=== PATIENT | female | born 1935 | race Caucasian/White ===

== ENCOUNTER 2018-09-27 18:54 | Observation (INO) | payer MEDICARE, OTHER ==
[2018-09-27] MEDS ORDERED: ONDANSETRON HCL INJ/PF 4 MG/2 ML SDV IV ONE (19:28)
[2018-09-27] MEDS ORDERED: MORPHINE SULFATE 10 MG/ML INJ IV ONE ×2 (19:28→21:49)
[2018-09-27 19:44] LABS: ABSOLUTE BASOPHILS # (AUTO) 0.1 10^3/uL (0.0-0.2); ABSOLUTE EOSINOPHILS # (AUTO) 0.2 10^3/uL (0.0-0.6); ABSOLUTE LYMPHOCYTES (AUTO) 2.2 10^3/uL (0.5-4.7); ABSOLUTE MONOCYTES (AUTO) 0.6 10^3/uL (0.1-1.4); ABSOLUTE NEUT (AUTO) 2.8 10^3/uL (1.7-8.2); BASOPHILS % (AUTO) 0.9 % (0-2); EOSINOPHILS % (AUTO) 2.8 % (0-6); HEMATOCRIT 38.4 % (36.0-47.0); HEMOGLOBIN 12.9 g/dL (12.0-15.5); MEAN CORPUSCULAR HEMOGLOBIN 29.4 pg (27.0-33.4); MEAN CORPUSCULAR HGB CONC 33.6 g/dL (32.0-36.0); MEAN CORPUSCULAR VOLUME 88 fl (80-97); MONOCYTES % (AUTO) 10.5 % (3-13); PLATELET COUNT 208 10^3/uL (150-450); RED BLOOD COUNT 4.38 10^6/uL (3.72-5.28); RED CELL DISTRIBUTION WIDTH 14.1 % (11.5-14.0); SEGMENTED NEUTROPHILS % (AUTO) 47.8 % (42-78); TOTAL CELLS COUNTED % (AUTO) 100 %; WHITE BLOOD COUNT 5.8 10^3/uL (4.0-10.5)
[2018-09-27 19:53] LABS: ALANINE AMINOTRANSFERASE 19 U/L (9-52); ALBUMIN 4.2 g/dL (3.5-5.0); ALKALINE PHOSPHATASE 54 U/L (38-126); ANION GAP 11 (5-19); ASPARTATE AMINO TRANSFERASE 37 U/L (14-36); BILIRUBIN,DIRECT 0.3 mg/dL (0.0-0.4); BILIRUBIN,TOTAL 0.6 mg/dL (0.2-1.3); BLOOD UREA NITROGEN 20 mg/dL (7-20); CALCIUM 9.3 mg/dL (8.4-10.2); CARBON DIOXIDE 27 mmol/L (22-30); CHLORIDE 105 mmol/L (98-107); CREATINE KINASE 156 U/L (30-135); GLUCOSE 102 mg/dL (75-110); POTASSIUM 4.4 mmol/L (3.6-5.0); SODIUM 142.5 mmol/L (137-145); TOTAL PROTEIN 7.4 g/dL (6.3-8.2)
[2018-09-27 20:05] LABS: CREATINE KINASE MB 2.11 ng/mL (<4.55)
[2018-09-27 20:10] LABS: TROPONIN I < 0.012 ng/mL
--- NOTE | 2018-09-27 20:41 | RADIOLOGY REPORT (SQ) ---
EXAM DESCRIPTION: XR LEFT FOOT 3 OR MORE VIEWS COMPLETED DATE/TME: 09/27/2018 19:27 CLINICAL HISTORY: 83 years, Female, Injury of great toe COMPARISON: None. NUMBER OF VIEWS: TECHNIQUE: LIMITATIONS: None. FINDINGS: There is comminuted fracture of the distal phalanx of the great toe. I see no additional fractures. IMPRESSION: Fracture of the distal phalanx of the great toe. copyright 2010 [employer]- All Rights Reserved
--- NOTE | 2018-09-27 20:45 | RADIOLOGY REPORT (SQ) ---
EXAM DESCRIPTION: XR KNEE 3 VIEWS COMPLETED DATE/TME: 09/27/2018 19:27 CLINICAL HISTORY: 83 years, Female, Injury COMPARISON: None. NUMBER OF VIEWS: Three TECHNIQUE: Frontal, lateral, and sunrise projections of the left knee were obtained LIMITATIONS: None. FINDINGS: Soft tissue swelling is noted about the prepatellar soft tissues. Otherwise, visualized osseous structures appear normal without acute fracture or dislocation. No significant knee joint effusion. There is arterial calcinosis. IMPRESSION: Prepatellar soft tissue swelling without underlying acute osseous anomaly. copyright 2010 [employer]- All Rights Reserved
--- NOTE | 2018-09-27 20:50 | RADIOLOGY REPORT (SQ) ---
XR CHEST 1 VIEW HISTORY: Syncope. COMPARISON: None. FINDINGS: The heart size is normal. No consolidation, pleural effusion, or pneumothorax is seen. Prior fixation of the proximal right humerus. Left axillary clips are seen. IMPRESSION: No evidence of acute cardiopulmonary disease.
--- NOTE | 2018-09-27 20:51 | RADIOLOGY REPORT (SQ) ---
EXAM DESCRIPTION: XR WRIST 3 OR MORE VIEWS BILATERAL COMPLETED DATE/TME: 09/27/2018 19:26 CLINICAL HISTORY: 83 years, Female, injury COMPARISON: None. NUMBER OF VIEWS: TECHNIQUE: LIMITATIONS: None. FINDINGS: There is comminuted fracture of the distal right radius, with dorsal angulation. The fracture involves the articular surface of the radius. There is also fracture involving the right ulnar styloid process. There is also comminuted fracture of the distal left radius, with dorsal angulation. This fracture also involves the articular surface of the radius. I do not see an ulnar fracture on the left side. IMPRESSION: Fractures of the distal right radius and right ulnar styloid process. Fracture of the distal left radius. copyright 2010 [employer]- All Rights Reserved
--- NOTE | 2018-09-27 20:55 | RADIOLOGY REPORT (SQ) ---
CT BRAIN AND CERVICAL SPINE HISTORY: Trauma. COMPARISON: None. TECHNIQUE: CT scan of the brain and cervical spine without IV contrast. This exam was performed according to our departmental dose-optimization program, which includes automated exposure control, adjustment of the mA and/or kV according to patient size and/or use of iterative reconstruction technique. FINDINGS: BRAIN: The ventricles, cisterns, and sulci are unremarkable. No focal white matter lesions are seen. No evidence of acute infarction, intracranial hemorrhage, extra-axial fluid collection, or midline shift. There is near complete opacification of the right maxillary sinus. No depressed skull fracture. CERVICAL SPINE: No acute cervical fracture or prevertebral soft tissue swelling. There is straightening of the normal cervical lordosis, which may be due to cervical collar, muscle spasm, or patient positioning. Multilevel degenerative disc disease along with facet arthropathy is present. No advanced canal stenosis is seen. IMPRESSION: 1. No acute intracranial hemorrhage. 2. No acute fracture or subluxation of the cervical spine.
[2018-09-27] MEDS ORDERED: CEFAZOLIN INJ 1 GM VIAL IV ONE (21:46)
[2018-09-27] MEDS ORDERED: MAG HYDROX/AL HYDROX/SIMETH SUSP 30 ML UDCUP PO PRN (21:56)
[2018-09-27] MEDS ORDERED: MAGNESIUM HYDROXIDE SUSP 30 ML UDCUP PO PRN (21:56)
[2018-09-27] MEDS ORDERED: KETOROLAC TROMETHAMINE INJ/PF 30 MG/1 ML SDV IV PRN (21:56)
[2018-09-27] MEDS ORDERED: HYDRALAZINE HCL INJ/PF 20 MG/1 ML SDV IV PRN (21:56)
[2018-09-27] MEDS ORDERED: IPRATROPIUM/ALBUTEROL 0.5-2.5 MG/3 ML AMPUL NEB PRN (21:56)
[2018-09-27] MEDS ORDERED: ACETAMINOPHEN 325 MG TABLET PO PRN (21:56)
[2018-09-27] MEDS ORDERED: NORMAL SALINE 1000 ML 1,000 ML IV PRN (22:00)
--- NOTE | 2018-09-27 22:04 | ER Document Report ---
ED General - Related Data Home Medications: Beta-violeta, trazodone, Ultram <JOE LANGFORD - Last Filed: 09/27/18 22:18> <CATALINA VILLANUEVA - Last Filed: 09/28/18 01:20> - General Chief Complaint: Fall Stated Complaint: FALL/HEAD INJURY Time Seen by Provider: 09/27/18 19:26 - HPI Notes: Patient is an 83-year-old female who presents to the emergency department for evaluation. She is here in town for a wedding. She states she was at the wedding, got dizzy and had a syncopal episode. She complains of pain in her head, bilateral wrist, left knee, left foot. This was witnessed. She was not unconscious on the ground per family. No seizure activity. She denies any chest pain or shortness of breath preceding the syncopal episode. She is unsure as to when her last tetanus shot was. She has not had any recent medication changes. (JOE LANGFORD) - Related Data Allergies/Adverse Reactions: Penicillins Allergy (Verified 09/27/18 19:16) Past Medical History - General Information source: Patient - Social History Smoking Status: Never Smoker Frequency of alcohol use: None Drug Abuse: None Family History: Reviewed & Not Pertinent Patient has suicidal ideation: No Patient has homicidal ideation: No - Past Medical History Cardiac Medical History: Reports: Other - "Irregular heart rate" for which she takes a beta-violeta Renal/ Medical History: Denies: Hx Peritoneal Dialysis Malignancy Medical History: Reports: Hx Breast Cancer Musculoskeletal Medical History: Reports Hx Arthritis <JOE LANGFORD - Last Filed: 09/27/18 22:18> Review of Systems - Review of Systems Constitutional: No symptoms reported EENT: See HPI Cardiovascular: See HPI Respiratory: No symptoms reported Gastrointestinal: No symptoms reported Genitourinary: No symptoms reported Musculoskeletal: See HPI Skin: See HPI Neurological/Psychological: No symptoms reported <JOE LANGFORD - Last Filed: 09/27/18 22:18> Physical Exam <JOE LANGFORD - Last Filed: 09/27/18 22:18> - Vital signs Vitals: Resp Pulse Ox 17 99 09/27/18 19:08 09/27/18 19:08 - Notes Notes: Patient is an 83-year-old female appears her stated age in no acute distress. Head is normocephalic. She has a large hematoma with a 2 cm laceration over the lateral left eyebrow. Mild gaping, no active bleeding, no foreign body. Nares are patent. Nose nasal bone tenderness, no septal hematoma. Oral mucosa is moist. Pharynx is midline. Neck is supple without thyromegaly or adenopathy. She has no midline tenderness or step-off. No paraspinal musculature tenderness of the C-spine. Heart is regular rate and rhythm, lungs are clear to escalation bilaterally. Abdomen soft, nontender, normal active bowel sounds. Patient is awake and alert, oriented x3. Cranial nerves II through XII are grossly intact without focal neurological deficits. Strength is plus 5 out of 5 bilateral upper and lower extremities. Sensation is intact. Unable to fully evaluate [id number], [id number], rapid alternating movement secondary to musculoskeletal pain. She has obvious deformities to right wrist, left wrist. Radial pulse is 2+ bilaterally. Capillary refill is brisk. She is neurovascularly intact to the entire hand. Full range of motion of the thumb bilaterally, although this does elicit some pain. Examination of the left knee reveals a moderate amount of swelling with ecchymosis. Range of motion is painful but full. No posterior calf tenderness. Examination of the left great toe yields a 3 mm wound, actively bleeding minimally. She has significant tenderness over the distal phalanx of the left great toe. She has ecchymosis on the third toe as well. Sensation is intact. Dorsalis pedis pulses 2+. (JOE LANGFORD) Course - Laboratory Result Diagrams: 09/27/18 19:05 09/27/18 19:05 - Diagnostic Test Radiology reviewed: Reports reviewed - CT head and cervical spine revealed n othing acute. Chest x-ray negative. Bilateral comminuted distal radial fractures. Right ulnar styloid fracture. Comminuted left great toe, distal phalanx fracture. <JOE LANGFORD - Last Filed: 09/27/18 22:18> - Laboratory Result Diagrams: 09/27/18 19:05 09/27/18 19:05 <CATALINA VILLANUEVA - Last Filed: 09/28/18 01:20> - Re-evaluation Re-evalutation: 09/27/18 22:02 Patient presents to the emergency department for evaluation. CT scans of the head and neck, plain films of the chest, bilateral wrists, left knee, left foot were ordered. Laboratory investigations, EKG obtained. Patient was placed on personal care assistant. She was given pain medication. She had some relief in her symptoms. She was found to have bilateral comminuted distal radial fractures, right ulnar styloid fracture, a left great toe fracture. CT scan of the head and neck were unremarkable. EKG failed to reveal anything acute, laboratory respirations are largely unremarkable. Her radial fractures does exhibit some dorsal angulation, but I do not believe that immediate reduction is indicated at this time. She is given further pain medication. She is given antibiotics for her open great toe fracture. She is placed in bilateral sugar tong splints. She is neurovascular intact distally. She is placed in a bulky dressing of her left great toe and in a postop shoe. Neurovascular intact following. Facial laceration is cleansed and closed, please see separate procedure note. I spoke with Dr. Jackson who will happily see the patient in consult. I spoke with Dr. Hilton, he will admit the patient for further care. (JOE LANGFORD) - Vital Signs Vital signs: Temp Pulse Resp BP Pulse Ox 98.8 F 14 182/87 H 98 09/27/18 19:15 09/27/18 19:13 09/27/18 19:13 09/27/18 19:26 - Laboratory Laboratory results interpreted by me: 09/27/18 09/27/18 19:05 19:05 RDW 14.1 H Est GFR (Non-Af Amer) 51 L AST 37 H Creatine Kinase 156 H - EKG Interpretation by Me Additional EKG results interpreted by me: 09/27/18 22:04 Sinus rhythm with a rate of 65 bpm. Normal axis and intervals, no acute ST changes concerning for ischemia or infarction. (JOE LANGFORD) Procedures - Laceration/Wound Repair Left Face Wound length (cm): 2 Wound's Depth, Shape: Superficial, Linear Laceration pre-procedure: Sterile PPE donned, Sterile drapes applied, Shur-Clens applied Anesthetic type: 1% Lidocaine w/epi Volume Anesthetic (mLs): 3 Wound explored: Clean, Foreign body removed Irrigated w/ Saline (mLs): 100 Wound Repaired With: Sutures Suture Size/Type: 6:0, Nylon Number of Sutures: 5 Layer Closure?: Yes Complications: No Adult Head Front/Back picture: 1 - 5 sutures placed to close laceration. <CATALINA VILLANUEVA - Last Filed: 09/28/18 01:20> - Laceration/Wound Repair Left Face Notes: 09/28/18 Patient tolerated procedure well. (CATALINA VILLANUEVA) Discharge - Discharge Admitting Provider: Yobani (Hospitalist) Unit Admitted: Telemetry <JOE LANGFORD - Last Filed: 09/27/18 22:18> <CATALINA VILLANUEVA - Last Filed: 09/28/18 01:20> - Discharge Clinical Impression: Syncope Qualifiers: Encounter type: initial encounter Closed fracture of right distal radius and ulna Qualifiers: Encounter type: initial encounter Qualified Code(s): S52.501A - Unspecified fracture of the lower end of right radius, initial encounter for closed fracture Closed fracture of left distal radius Qualifiers: Encounter type: initial encounter Open fracture of distal phalanx of left great toe Qualifiers: Encounter type: initial encounter Facial laceration Qualifiers: Encounter type: initial encounter Qualified Code(s): S01.81XA - Laceration without foreign body of other part of head, initial encounter Head injury Qualifiers: Encounter type: initial encounter Qualified Code(s): S09.90XA - Unspecified injury of head, initial encounter Condition: Stable Disposition: ADMITTED INPATIENT
[2018-09-27] MEDS ORDERED: LIDOCAINE 1%/EPINEPHRINE INJ 20 ML VIAL INJ ONE (22:20)
--- NOTE | 2018-09-27 22:21 | EKG REPORT ---
SEVERITY:- ABNORMAL ECG - SINUS RHYTHM RIGHT BUNDLE BRANCH BLOCK : Confirmed by: Jonatan Doshi MD 27-Sep-2018 22:20:47
[2018-09-28] MEDS: MORPHINE SULFATE 10 MG/ML INJ IV PRN ×6 (00:31→23:48)
[2018-09-28] MEDS: HEPARIN SOD (PORCINE) 5,000 UNIT/ML 1 ML SYRINGE SUBCUT SCH ×4 (00:40→21:20)
--- NOTE | 2018-09-28 05:21 | PDOC H&P ---
History of Present Illness Admission Date/PCP: 09/27/18 22:43 SHAKIRA ALEX MD Patient complains of: Syncope and fall History of Present Illness: JEFFERY DOBBINS is a 83 year old female with a past medical history of fibromyalgia, paroxysmal atrial fibrillation without anticoagulation and syncope. Patient presents after a syncopal episode upon standing resulting dizziness and a prone fall. She denies loss of consciousness, headache dizziness chest pain or palpitations. She did however strike her left brow with 2 cm laceration requiring suture, falling prone she has sustained fractures of the distal right radius and the right ulnar styloid process and fracture of the distal left radius. Also fracturing left distal phalanx of the great toe. Orthopedic surgery is consulted, she is splinted with brisk capillary refill treated symptomatically with morphine and referred to the hospitalist for admission. Patient denies recent change in medications and is otherwise felt well. She is currently in normal sinus rhythm she has had previous episodes of syncope upon standing last occurring one year ago resulting in a right humeral head fracture. Past Medical History Cardiac Medical History: Reports: Other - "Irregular heart rate" for which she takes a beta-violeta Comment Only: Atrial Fibrillation - "irregular HR" Malignancy Medical History: Reports: Breast Cancer Musculoskeltal Medical History: Reports: Arthritis Past Surgical History Past Surgical History: Reports: Hysterectomy, Orthopedic Surgery Social History Information Source: Patient, Emergency Med Personnel, [facility] Records Lives with: Spouse/Significant other Smoking Status: Never Smoker Frequency of Alcohol Use: None Hx Recreational Drug Use: No Drugs: None Hx Prescription Drug Abuse: No - Advance Directive Resuscitation Status: Full Code Family History Family History: Hypertension Parental Family History Reviewed: Yes Children Family History Reviewed: Yes Sibling(s) Family History Reviewed.: Yes Medication/Allergy Allergies/Adverse Reactions: Penicillins Allergy (Verified 09/27/18 19:16) Review of Systems Constitutional: ABSENT: chills, fever(s), headache(s), weight gain, weight loss Eyes: ABSENT: visual disturbances Ears: ABSENT: hearing changes Cardiovascular: ABSENT: chest pain, dyspnea on exertion, edema, orthropnea, palpitations Respiratory: ABSENT: cough, hemoptysis Gastrointestinal: ABSENT: abdominal pain, constipation, diarrhea, hematemesis, hematochezia, nausea, vomiting Genitourinary: ABSENT: dysuria, hematuria Musculoskeletal: ABSENT: joint swelling Integumentary: ABSENT: rash, wounds Neurological: ABSENT: abnormal gait, abnormal speech, confusion, dizziness, foca l weakness, syncope Psychiatric: ABSENT: anxiety, depression, homidical ideation, suicidal ideation Endocrine: ABSENT: cold intolerance, heat intolerance, polydipsia, polyuria Hematologic/Lymphatic: ABSENT: easy bleeding, easy bruising Physical Exam Vital Signs: Temp Pulse Resp BP Pulse Ox 97.9 F 105 H 16 152/47 H 100 09/28/18 01:45 09/28/18 01:45 09/28/18 01:45 09/28/18 01:45 09/28/18 01:45 Intake & Output 09/26/18 09/27/18 09/28/18 11:59 11:59 11:59 Weight 64.5 kg General appearance: PRESENT: cooperative, mild distress, well-developed, well- nourished. ABSENT: disheveled Head exam: PRESENT: other - 2 cm sutured laceration over the left brow with periorbital ecchymosis. ABSENT: atraumatic Eye exam: PRESENT: conjunctiva pink, EOMI, PERRLA. ABSENT: scleral icterus Ear exam: PRESENT: normal external ear exam Mouth exam: PRESENT: moist, tongue midline Neck exam: ABSENT: carotid bruit, JVD, lymphadenopathy, thyromegaly Respiratory exam: PRESENT: clear to auscultation hossein. ABSENT: rales, rhonchi, wheezes Cardiovascular exam: PRESENT: RRR. ABSENT: diastolic murmur, rubs, systolic murmur Pulses: PRESENT: normal dorsalis pedis pul Vascular exam: PRESENT: normal capillary refill GI/Abdominal exam: PRESENT: normal bowel sounds, soft. ABSENT: distended, guarding, mass, organolmegaly, rebound, tenderness Rectal exam: PRESENT: deferred Extremities exam: PRESENT: other - Bilateral upper extremity splinting with brisk capillary refill. Left great toe splinted Neurological exam: PRESENT: alert, awake, oriented to person, oriented to place, oriented to time, oriented to situation, CN II-XII grossly intact. ABSENT: motor sensory deficit Psychiatric exam: PRESENT: appropriate affect, normal mood. ABSENT: homicidal ideation, suicidal ideation Skin exam: PRESENT: abrasion - Left knee abrasion with mild effusion, dry, intact, warm. ABSENT: cyanosis, rash Results Laboratory Results: 09/27/18 19:05 09/27/18 19:05 09/27/18 09/27/18 09/27/18 19:05 19:05 19:05 WBC 5.8 RBC 4.38 Hgb 12.9 Hct 38.4 MCV 88 MCH 29.4 MCHC 33.6 RDW 14.1 H Plt Count 208 Seg Neutrophils % 47.8 Lymphocytes % 38.0 Monocytes % 10.5 Eosinophils % 2.8 Basophils % 0.9 Absolute Neutrophils 2.8 Absolute Lymphocytes 2.2 Absolute Monocytes 0.6 Absolute Eosinophils 0.2 Absolute Basophils 0.1 Sodium 142.5 Potassium 4.4 Chloride 105 Carbon Dioxide 27 Anion Gap 11 BUN 20 Creatinine 1.03 Est GFR ( Amer) > 60 Est GFR (Non-Af Amer) 51 L Glucose 102 Calcium 9.3 Magnesium 2.2 Total Bilirubin 0.6 AST 37 H ALT 19 Alkaline Phosphatase 54 Total Protein 7.4 Albumin 4.2 09/27/18 09/27/18 09/28/18 19:05 19:05 01:05 Creatine Kinase 156 H 191 H CK-MB (CK-2) 2.11 Troponin I < 0.012 09/28/18 01:05 Creatine Kinase CK-MB (CK-2) Troponin I < 0.012 Impressions: Chest X-Ray 09/27/18 19:26 IMPRESSION: No evidence of acute cardiopulmonary disease. Hand/Wrist X-Ray 09/27/18 19:26 IMPRESSION: Fractures of the distal right radius and right ulnar styloid process. Fracture of the distal left radius. copyright 2010 [employer]- All Rights Reserved Foot X-Ray 09/27/18 19:27 IMPRESSION: Fracture of the distal phalanx of the great toe. copyright 2010 [employer]- All Rights Reserved Head CT 09/27/18 19:27 IMPRESSION: 1. No acute intracranial hemorrhage. 2. No acute fracture or subluxation of the cervical spine. Knee X-Ray 09/27/18 19:27 IMPRESSION: Prepatellar soft tissue swelling without underlying acute osseous anomaly. copyright 2010 [employer]- All Rights Reserved Cervical Spine CT 09/27/18 19:28 IMPRESSION: 1. No acute intracranial hemorrhage. 2. No acute fracture or subluxation of the cervical spine. Assessment and Plan - Diagnosis (1) Syncope Qualifiers: Encounter type: initial encounter Is this a current diagnosis for this admission?: Yes Plan: Telemetry admission, likely secondary to SVT versus paroxysmal atrial fibrill ation versus aortic stenosis. Currently in normal sinus rhythm, continue telemetry, follow-up serial cardiac enzymes, consider 2D echo. (2) Closed fracture of left distal radius Qualifiers: Encounter type: initial encounter Is this a current diagnosis for this admission?: Yes Plan: Symptomatic management, orthopedic surgery consulted (3) Closed fracture of right distal radius and ulna Qualifiers: Encounter type: initial encounter Qualified Code(s): S52.501A - Unspecified fracture of the lower end of right radius, initial encounter for closed fracture; S52.601A - Unspecified fracture of lower end of right ulna, initial encounter for closed fracture Is this a current diagnosis for this admission?: Yes Plan: Symptomatic management, orthopedic surgery consulted (4) Facial laceration Qualifiers: Encounter type: initial encounter Qualified Code(s): S01.81XA - Laceration without foreign body of other part of head, initial encounter Is this a current diagnosis for this admission?: Yes Plan: Monitor for postconcussive state - Time Time Spent with patient: 35 or more minutes - Inpatient Certification Medical Necessity: Need Close Monitoring Due to Risk of Patient Decompensation
[2018-09-28 07:56] LABS: ABSOLUTE BASOPHILS # (AUTO) 0.1 10^3/uL (0.0-0.2); ABSOLUTE EOSINOPHILS # (AUTO) 0.1 10^3/uL (0.0-0.6); ABSOLUTE MONOCYTES (AUTO) 0.7 10^3/uL (0.1-1.4); ABSOLUTE NEUT (AUTO) 3.8 10^3/uL (1.7-8.2); EOSINOPHILS % (AUTO) 1.5 % (0-6); HEMATOCRIT 31.1 % (36.0-47.0); LYMPHOCYTES % (AUTO) 30.1 % (13-45); MEAN CORPUSCULAR HEMOGLOBIN 29.8 pg (27.0-33.4); MEAN CORPUSCULAR HGB CONC 34.3 g/dL (32.0-36.0); MEAN CORPUSCULAR VOLUME 87 fl (80-97); MONOCYTES % (AUTO) 10.9 % (3-13); RED BLOOD COUNT 3.57 10^6/uL (3.72-5.28); RED CELL DISTRIBUTION WIDTH 13.7 % (11.5-14.0); SEGMENTED NEUTROPHILS % (AUTO) 56.5 % (42-78); TOTAL CELLS COUNTED % (AUTO) 100 %; WHITE BLOOD COUNT 6.7 10^3/uL (4.0-10.5)
[2018-09-28 08:30] LABS: HEMOGLOBIN 10.6 g/dL (12.0-15.5)
[2018-09-28 08:31] LABS: PLATELET COUNT 141 10^3/uL (150-450)
[2018-09-28] MEDS: DOCUSATE SODIUM 100 MG CAPSULE PO SCH ×2 (12:09→17:04)
--- NOTE | 2018-09-28 12:51 | PDOC CONSULTATION ---
History of Present Illness Admission Date/PCP: 09/27/18 22:43 SHAKIRA ALEX MD Patient complains of: Bilateral wrist pain left great toe injury History of Present Illness: JEFFERY DOBBINS is a 83 year old female who was visiting out of town from [place] when she was at a wedding and apparently sustained a syncopal episode and fell onto her bilateral upper extremities and twisted her left great toe. Patient was seen at the emergency room where x-rays demonstrated bilateral distal radius fractures along with open great toe fracture. Patient was admitted to the hospitalist service for reevaluation of her syncope. Patient states she does have some numbness in the right fingertips but this has somewhat improved once I loosen the bandage. Pain worse with motion. Has difficulty ambulating or transporting secondary to the bilateral nature of her injury. Denies fever chills or sweats. Pain 2/5. Past Medical History Cardiac Medical History: Reports: Other - "Irregular heart rate" for which she takes a beta-violeta Comment Only: Atrial Fibrillation - "irregular HR" Malignancy Medical History: Reports: Breast Cancer Musculoskeltal Medical History: Reports: Arthritis Past Surgical History Past Surgical History: Reports: Hysterectomy, Orthopedic Surgery Social History Lives with: Spouse/Significant other Smoking Status: Never Smoker Frequency of Alcohol Use: None Hx Recreational Drug Use: No Drugs: None Hx Prescription Drug Abuse: No - Advance Directive Resuscitation Status: Full Code Family History Family History: Hypertension Parental Family History Reviewed: No Children Family History Reviewed: No Sibling(s) Family History Reviewed.: No Medication/Allergy Home Medications: Acetaminophen [Tylenol Extra Strength 500 mg Tablet] 500 mg PO QIDP PRN 09/28/18 Metoprolol Tartrate [Lopressor 25 mg Tablet] 25 mg PO Q12 09/28/18 Tramadol HCl [Ultram 50 mg Tablet] 50 mg PO QIDP PRN 09/28/18 Trazodone HCl [Desyrel] 100 mg PO DAILY 09/28/18 Allergies/Adverse Reactions: Penicillins Allergy (Verified 09/27/18 19:16) Review of Systems Constitutional: ABSENT: chills, fever(s), headache(s), weight gain, weight loss Eyes: ABSENT: visual disturbances Ears: ABSENT: hearing changes Cardiovascular: PRESENT: as per HPI. ABSENT: chest pain, dyspnea on exertion, edema, orthropnea, palpitations Respiratory: ABSENT: cough, hemoptysis Gastrointestinal: ABSENT: abdominal pain, constipation, diarrhea, hematemesis, hematochezia, nausea, vomiting Genitourinary: ABSENT: dysuria, hematuria Musculoskeletal: PRESENT: as per HPI Integumentary: ABSENT: rash, wounds Neurological: PRESENT: as per HPI. ABSENT: abnormal gait, abnormal speech, confusion, dizziness, focal weakness, syncope Psychiatric: ABSENT: anxiety, depression, homidical ideation, suicidal ideation Endocrine: ABSENT: cold intolerance, heat intolerance, menstrual abnormalities, polydipsia, polyuria Hematologic/Lymphatic: ABSENT: easy bleeding, easy bruising, lymphadenopathy Physical Exam Vital Signs: Temp Pulse Resp BP Pulse Ox 97.9 F 59 L 16 152/47 H 100 09/28/18 01:45 09/28/18 08:37 09/28/18 01:45 09/28/18 01:45 09/28/18 01:45 Intake & Output 09/27/18 09/28/18 09/29/18 06:59 06:59 06:59 Intake Total 240 Balance 240 Weight 64.5 kg General appearance: PRESENT: no acute distress, well-developed, well-nourished Head exam: PRESENT: normocephalic, other - Laceration above the left upper eyelid Eye exam: PRESENT: conjunctiva pink, EOMI, PERRLA. ABSENT: scleral icterus Ear exam: PRESENT: normal external ear exam Mouth exam: PRESENT: moist, tongue midline Neck exam: PRESENT: full ROM. ABSENT: carotid bruit, JVD, lymphadenopathy, thyromegaly Cardiovascular exam: PRESENT: RRR. ABSENT: diastolic murmur, rubs, systolic murmur Pulses: PRESENT: normal dorsalis pedis pul, +2 pedal pulses bilateral Vascular exam: PRESENT: normal capillary refill GI/Abdominal exam: PRESENT: normal bowel sounds, soft. ABSENT: distended, guarding, mass, organolmegaly, rebound, tenderness Rectal exam: PRESENT: deferred Musculoskeletal exam: PRESENT: other - Right wrist: Splint loosened splint dry/intact, intact flexion/extension of all digits. Capillary refill less than 2 seconds. Hypoesthesias on the distal tips. No significant swelling. Compartments soft and compressible no sign of compartment syndrome. Left wrist: Cast dry/intact, intact flexion/extension of all digits. Capillary refill less than 2 seconds. No sensory deficits. No evidence of skin breakdown. Left great toe: Swelling ecchymosis. Small puncture wound dorsally no active drainage. Tenderness to palpation. No gross deformity. Neurological exam: PRESENT: alert, awake, oriented to person, oriented to place, oriented to time, oriented to situation, CN II-XII grossly intact. ABSENT: motor sensory deficit Psychiatric exam: PRESENT: appropriate affect, normal mood. ABSENT: homicidal ideation, suicidal ideation Skin exam: PRESENT: dry, intact, warm. ABSENT: cyanosis, rash Results Laboratory Results: 09/28/18 06:46 09/27/18 19:05 09/27/18 09/27/18 09/27/18 19:05 19:05 19:05 WBC 5.8 RBC 4.38 Hgb 12.9 Hct 38.4 MCV 88 MCH 29.4 MCHC 33.6 RDW 14.1 H Plt Count 208 Seg Neutrophils % 47.8 Lymphocytes % 38.0 Monocytes % 10.5 Eosinophils % 2.8 Basophils % 0.9 Absolute Neutrophils 2.8 Absolute Lymphocytes 2.2 Absolute Monocytes 0.6 Absolute Eosinophils 0.2 Absolute Basophils 0.1 Sodium 142.5 Potassium 4.4 Chloride 105 Carbon Dioxide 27 Anion Gap 11 BUN 20 Creatinine 1.03 Est GFR ( Amer) > 60 Est GFR (Non-Af Amer) 51 L Glucose 102 Calcium 9.3 Magnesium 2.2 Total Bilirubin 0.6 AST 37 H ALT 19 Alkaline Phosphatase 54 Total Protein 7.4 Albumin 4.2 09/28/18 06:46 WBC 6.7 RBC 3.57 L Hgb 10.6 L D Hct 31.1 L MCV 87 MCH 29.8 MCHC 34.3 RDW 13.7 Plt Count 141 L Seg Neutrophils % 56.5 Lymphocytes % 30.1 Monocytes % 10.9 Eosinophils % 1.5 Basophils % 1.0 Absolute Neutrophils 3.8 Absolute Lymphocytes 2.0 Absolute Monocytes 0.7 Absolute Eosinophils 0.1 Absolute Basophils 0.1 Sodium Potassium Chloride Carbon Dioxide Anion Gap BUN Creatinine Est GFR ( Amer) Est GFR (Non-Af Amer) Glucose Calcium Magnesium Total Bilirubin AST ALT Alkaline Phosphatase Total Protein Albumin 09/27/18 09/27/18 09/28/18 19:05 19:05 01:05 Creatine Kinase 156 H 191 H CK-MB (CK-2) 2.11 Troponin I < 0.012 09/28/18 09/28/18 09/28/18 01:05 06:46 06:46 Creatine Kinase 216 H CK-MB (CK-2) Troponin I < 0.012 < 0.012 09/28/18 09/28/18 11:31 11:31 Creatine Kinase 298 H CK-MB (CK-2) Troponin I < 0.012 Impressions: Chest X-Ray 09/27/18 19:26 IMPRESSION: No evidence of acute cardiopulmonary disease. Hand/Wrist X-Ray 09/27/18 19:26 IMPRESSION: Fractures of the distal right radius and right ulnar styloid process. Fracture of the distal left radius. copyright 2010 [employer] All Rights Reserved Foot X-Ray 09/27/18 19:27 IMPRESSION: Fracture of the distal phalanx of the great toe. copyright 2010 [employer] All Rights Reserved Head CT 09/27/18 19:27 IMPRESSION: 1. No acute intracranial hemorrhage. 2. No acute fracture or subluxation of the cervical spine. Knee X-Ray 09/27/18 19:27 IMPRESSION: Prepatellar soft tissue swelling without underlying acute osseous anomaly. copyright 2010 [employer] All Rights Reserved Cervical Spine CT 09/27/18 19:28 IMPRESSION: 1. No acute intracranial hemorrhage. 2. No acute fracture or subluxation of the cervical spine. Status: Image reviewed by me - I have reviewed patient's radiographs right wrist demonstrates intra-articular distal radius fracture with approximate 20 degrees of dorsal angulation mild loss of radial height maintained radial inclination. Positive ulnar variance. Left wrist demonstrates intra-articular distal radius fracture with volar ulnar fragment mild diastases. Neutral alignment on lateral view. Multiple views of the left foot demonstrate comminuted distal phalanx fracture of the great toe. Assessment & Plan - Diagnosis (1) Closed fracture of left distal radius Qualifiers: Encounter type: initial encounter Is this a current diagnosis for this admission?: Yes (2) Closed fracture of right distal radius and ulna Qualifiers: Encounter type: initial encounter Qualified Code(s): S52.501A - Unspecified fracture of the lower end of right radius, initial encounter for closed fracture; S52.601A - Unspecified fracture of lower end of right ulna, initial encounter for closed fracture Is this a current diagnosis for this admission?: Yes Plan: I have reviewed patient's radiographs. Given the bilateral nature of her distal radius fractures including the dorsal angulation on the right and patient's osteopenia which would make it high risk for collapse she would likely benefit from operative intervention on the right and possibly casting on the left versus ORIF. Also would recommend examination under anesthesia of the great toe with the possibility of percutaneous pinning. Patient did sustain a grade I open fracture of the great toe but there is no sign or symptoms of infection and I do not feel operative intervention is emergent in the situation. Given the fact patient is from out of town she would prefer to follow-up locally and proceed with operative intervention at that time. I do feel this is a reasonable plan and would recommend patient follow-up with [facility] in [place]. (3) Open fracture of distal phalanx of left great toe Qualifiers: Encounter type: initial encounter Is this a current diagnosis for this admission?: Yes
--- NOTE | 2018-09-28 12:58 | PDOC PROGRESS REPORT ---
Subjective Progress Note for:: 09/28/18 Subjective:: This is an 83 year old female with a past medical history of fibromyalgia, paroxysmal atrial fibrillation without anticoagulation and syncope. Patient presents after a syncopal episode upon standing sustaining a left brow laceration, fractures of the distal right radius and the right ulnar styloid process and fracture of the distal left radius and left distal phalanx of the great toe. Orthopedic surgery is consulted, she is splinted with brisk capillary refill treated symptomatically with morphine and referred to the hospitalist for admission. No acute event overnight. She complains of pain on the fracture sites this morning on encounter. She will be getting her morphine soon. Denies chest pain or SOB. No dizziness. She does affirmt hat she passed out when she stood up while at a wedding. Will check orthostatic vital signs. She will be scheduled by ortho for surgical repair of her fractures. Reason For Visit: SYNCOPE BLT WRIST FRACTURES Physical Exam Vital Signs: Temp Pulse Resp BP Pulse Ox 97.9 F 59 L 16 152/47 H 100 09/28/18 01:45 09/28/18 08:37 09/28/18 01:45 09/28/18 01:45 09/28/18 01:45 Intake & Output 09/27/18 09/28/18 09/29/18 06:59 06:59 06:59 Intake Total 240 Balance 240 Weight 142 lb 3.17 oz General appearance: PRESENT: no acute distress, well-developed, well-nourished Head exam: PRESENT: atraumatic, normocephalic Eye exam: PRESENT: conjunctiva pink, EOMI, PERRLA. ABSENT: scleral icterus Ear exam: PRESENT: normal external ear exam Mouth exam: PRESENT: moist, tongue midline Neck exam: ABSENT: carotid bruit, JVD, lymphadenopathy, thyromegaly Respiratory exam: PRESENT: clear to auscultation hossein. ABSENT: rales, rhonchi, wheezes Cardiovascular exam: PRESENT: RRR. ABSENT: diastolic murmur, rubs, systolic murmur GI/Abdominal exam: PRESENT: normal bowel sounds, soft. ABSENT: distended, guarding, mass, organolmegaly, rebound, tenderness Rectal exam: PRESENT: deferred Extremities exam: PRESENT: other - splint on both arms Neurological exam: PRESENT: alert, awake, oriented to person, oriented to place, oriented to time, oriented to situation, CN II-XII grossly intact. ABSENT: motor sensory deficit Results Laboratory Results: 09/28/18 06:46 09/27/18 19:05 09/27/18 09/27/18 09/27/18 19:05 19:05 19:05 WBC 5.8 RBC 4.38 Hgb 12.9 Hct 38.4 MCV 88 MCH 29.4 MCHC 33.6 RDW 14.1 H Plt Count 208 Seg Neutrophils % 47.8 Lymphocytes % 38.0 Monocytes % 10.5 Eosinophils % 2.8 Basophils % 0.9 Absolute Neutrophils 2.8 Absolute Lymphocytes 2.2 Absolute Monocytes 0.6 Absolute Eosinophils 0.2 Absolute Basophils 0.1 Sodium 142.5 Potassium 4.4 Chloride 105 Carbon Dioxide 27 Anion Gap 11 BUN 20 Creatinine 1.03 Est GFR ( Amer) > 60 Est GFR (Non-Af Amer) 51 L Glucose 102 Calcium 9.3 Magnesium 2.2 Total Bilirubin 0.6 AST 37 H ALT 19 Alkaline Phosphatase 54 Total Protein 7.4 Albumin 4.2 09/28/18 06:46 WBC 6.7 RBC 3.57 L Hgb 10.6 L D Hct 31.1 L MCV 87 MCH 29.8 MCHC 34.3 RDW 13.7 Plt Count 141 L Seg Neutrophils % 56.5 Lymphocytes % 30.1 Monocytes % 10.9 Eosinophils % 1.5 Basophils % 1.0 Absolute Neutrophils 3.8 Absolute Lymphocytes 2.0 Absolute Monocytes 0.7 Absolute Eosinophils 0.1 Absolute Basophils 0.1 Sodium Potassium Chloride Carbon Dioxide Anion Gap BUN Creatinine Est GFR ( Amer) Est GFR (Non-Af Amer) Glucose Calcium Magnesium Total Bilirubin AST ALT Alkaline Phosphatase Total Protein Albumin 09/27/18 09/27/18 09/28/18 19:05 19:05 01:05 Creatine Kinase 156 H 191 H CK-MB (CK-2) 2.11 Troponin I < 0.012 09/28/18 09/28/18 09/28/18 01:05 06:46 06:46 Creatine Kinase 216 H CK-MB (CK-2) Troponin I < 0.012 < 0.012 09/28/18 09/28/18 11:31 11:31 Creatine Kinase 298 H CK-MB (CK-2) Troponin I < 0.012 Impressions: Chest X-Ray 09/27/18 19:26 IMPRESSION: No evidence of acute cardiopulmonary disease. Hand/Wrist X-Ray 09/27/18 19:26 IMPRESSION: Fractures of the distal right radius and right ulnar styloid process. Fracture of the distal left radius. copyright 2010 [employer]- All Rights Reserved Foot X-Ray 09/27/18 19:27 IMPRESSION: Fracture of the distal phalanx of the great toe. copyright 2010 [employer]- All Rights Reserved Head CT 09/27/18 19:27 IMPRESSION: 1. No acute intracranial hemorrhage. 2. No acute fracture or subluxation of the cervical spine. Knee X-Ray 09/27/18 19:27 IMPRESSION: Prepatellar soft tissue swelling without underlying acute osseous anomaly. copyright 2010 [employer]- All Rights Reserved Cervical Spine CT 09/27/18 19:28 IMPRESSION: 1. No acute intracranial hemorrhage. 2. No acute fracture or subluxation of the cervical spine. Assessment and Plan - Diagnosis (1) Syncope Qualifiers: Encounter type: initial encounter Is this a current diagnosis for this admission?: Yes Plan: History is suggestive of vasovagal syncope. Will check orthostatic vital signs q4h. Will also order a carotid doppler. Echo has been ordered. (2) Closed fracture of left distal radius Qualifiers: Encounter type: initial encounter Is this a current diagnosis for this admission?: Yes Plan: Management per orthopedics. (3) Closed fracture of right distal radius and ulna Qualifiers: Encounter type: initial encounter Qualified Code(s): S52.501A - Unspecified fracture of the lower end of right radius, initial encounter for closed fracture; S52.601A - Unspecified fracture of lower end of right ulna, initial encounter for closed fracture Is this a current diagnosis for this admission?: Yes Plan: As per number 1. (4) Facial laceration Qualifiers: Encounter type: initial encounter Qualified Code(s): S01.81XA - Laceration without foreign body of other part of head, initial encounter Is this a current diagnosis for this admission?: Yes Plan: Sutured in ER. (5) Open fracture of distal phalanx of left great toe Qualifiers: Encounter type: initial encounter Is this a current diagnosis for this admission?: Yes Plan: As per number 1. - Time Time Spent with patient: 25-34 minutes
--- NOTE | 2018-09-28 18:18 | RADIOLOGY REPORT (SQ) ---
EXAM DESCRIPTION: CAROTID DOPPLER COMPLETED DATE/TIME: 09/28/2018 4:23 pm REASON FOR STUDY: syncope COMPARISON: None. TECHNIQUE: Grayscale ultrasound, Doppler velocity and spectra, and color Doppler images acquired of the extra-cranial carotid and vertebral arteries. Images stored on PACS. LIMITATIONS: None. FINDINGS: RIGHT CAROTID CCA Velocities: Within normal limits. ICA Velocities Peak systolic 96 cm/s. End diastolic 18 cm/s. Proximal ICA/CCA peak systolic ratio 1.3. Spectra normal. No significant plaque. LEFT CAROTID CCA Velocities: Within normal limits. ICA Velocities Peak systolic 110 cm/s. End diastolic 27 cm/s. Proximal ICA/CCA peak systolic ratio 1.2. Spectra normal. No significant plaque. VERTEBRAL ARTERIES: Antegrade flow. Normal waveforms. SUBCLAVIAN ARTERIES: No finding. OTHER: No other significant finding. IMPRESSION: NO HEMODYNAMICALLY SIGNIFICANT STENOSIS. COMMENT: Quality ID #[id number]: Velocity criteria are extrapolated from the diameter data as defined by t [place] Society of Radiologists in Ultrasound Consensus Conference. Radiology 2003: 229; 340-346. TECHNICAL DOCUMENTATION: JOB ID: [id number] [place]-72 2010 [employer]- All Rights Reserved Reading location - IP/workstation name: [email or web address]
[2018-09-28] MEDS ORDERED: METOPROLOL TARTRATE 25 MG TABLET PO ONE (23:45)
[2018-09-29] MEDS: HEPARIN SOD (PORCINE) 5,000 UNIT/ML 1 ML SYRINGE SUBCUT SCH (05:13)
[2018-09-29] MEDS: MORPHINE SULFATE 10 MG/ML INJ IV PRN ×2 (07:03→11:12)
[2018-09-29] MEDS: DOCUSATE SODIUM 100 MG CAPSULE PO SCH (09:39)
[2018-09-29] MEDS ORDERED: METOPROLOL TARTRATE 25 MG TABLET PO SCH (10:00)
[2018-09-29 10:48] VITALS: BP 152/47
--- NOTE | 2018-09-29 16:45 | PDOC DISCHARGE SUMMARY ---
General - Admit/Disc Date/PCP Admission Date/Primary Care Provider: 09/27/18 21:56 SHAKIRA ALEX MD Discharge Date: 09/29/18 - Discharge Diagnosis (1) Syncope Is this a current diagnosis for this admission?: Yes (2) Closed fracture of left distal radius Is this a current diagnosis for this admission?: Yes (3) Closed fracture of right distal radius and ulna Is this a current diagnosis for this admission?: Yes (4) Facial laceration Is this a current diagnosis for this admission?: Yes (5) Open fracture of distal phalanx of left great toe Is this a current diagnosis for this admission?: Yes - Additional Information Resuscitation Status: Full Code Discharge Diet: As Tolerated, Regular Discharge Activity: Activity As Tolerated, Balance Activity w/Rest, No Lifting/Push/Pulling Prescriptions: Hydrocodone/Acetaminophen [[place] 5-325 mg Tablet] 1 tab PO Q6H #12 tablet Home Medications: Acetaminophen [Tylenol Extra Strength 500 mg Tablet] 500 mg PO QIDP PRN 09/28/18 Metoprolol Tartrate [Lopressor 25 mg Tablet] 25 mg PO Q12 09/28/18 Tramadol HCl [Ultram 50 mg Tablet] 50 mg PO QIDP PRN 09/28/18 Hydrocodone/Acetaminophen [[place] 5-325 mg Tablet] 1 tab PO Q6H #12 tablet 09/29/18 Trazodone HCl [Desyrel] 100 mg PO DAILY PRN #0 09/29/18 History of Present Illness History of Present Illness: Admitting hospitalist's H&P: JEFFERY DOBBINS is a 83 year old female with a past medical history of fibromyalgia, paroxysmal atrial fibrillation without anticoagulation and syncope. Patient presents after a syncopal episode upon standing resulting dizziness and a prone fall. She denies loss of consciousness, headache dizziness chest pain or palpitations. She did however strike her left brow with 2 cm laceration requiring suture, falling prone she has sustained fractures of the distal right radius and the right ulnar styloid process and fracture of the distal left radius. Also fracturing left distal phalanx of the great toe. Orthopedic surgery is consulted, she is splinted with brisk capillary refill treated symptomatically with morphine and referred to the hospitalist for admission. Patient denies recent change in medications and is otherwise felt well. She is currently in normal sinus rhythm she has had previous episodes of syncope upon standing last occurring one year ago resulting in a right humeral head fracture. Hospital Course Hospital Course: This is an 83 year old female with a past medical history of fibromyalgia, paroxysmal atrial fibrillation without anticoagulation and syncope. Patient presents after a syncopal episode upon standing sustaining a left brow laceration, fractures of the distal right radius and the right ulnar styloid process and fracture of the distal left radius and left distal phalanx of the great toe. Orthopedic surgery is consulted, she is splinted with brisk capillary refill treated symptomatically with morphine and referred to the hospitalist for admission. She does report that she passed out when she stood up while at a wedding event. Orthostatic vitals were monitored and was unremarkable. Carotid doppler was also unremarkable. Syncope is more consistent with vasovagal syncope. She was evaluated by ortho, Dr. Jackson but patient and prefer to be discharged and to have her orthopedic repair done in [place]. Discussed with Dr. Jackson, her fractures are not considered emergent. Dr Jackson has kindly set her up with Dr. Solano at [facility] in [place] and she will be seen on Saturday at 9 AM for ortho intervention. Ortho does not recommend pharmacologic VTE prophylaxis for mentioned fractures. Physical Exam Vital Signs: Temp Pulse Resp BP Pulse Ox 98.7 F 88 18 152/47 H 95 09/29/18 10:43 09/29/18 10:43 09/29/18 10:43 09/29/18 10:43 09/29/18 10:43 Intake & Output 09/28/18 09/29/18 09/30/18 06:59 06:59 06:59 Intake Total 240 1020 Output Total 700 Balance 240 320 Weight 142 lb 3.17 oz 142 lb 3.17 oz General appearance: PRESENT: no acute distress, well-developed, well-nourished Head exam: PRESENT: atraumatic, normocephalic Eye exam: PRESENT: conjunctiva pink, EOMI, PERRLA. ABSENT: scleral icterus Ear exam: PRESENT: normal external ear exam Mouth exam: PRESENT: moist, tongue midline Neck exam: ABSENT: carotid bruit, JVD, lymphadenopathy, thyromegaly Respiratory exam: PRESENT: clear to auscultation hossein. ABSENT: rales, rhonchi, wheezes Cardiovascular exam: PRESENT: RRR. ABSENT: diastolic murmur, rubs, systolic murmur Pulses: PRESENT: normal dorsalis pedis pul GI/Abdominal exam: PRESENT: normal bowel sounds, soft. ABSENT: distended, guarding, mass, organolmegaly, rebound, tenderness Rectal exam: PRESENT: deferred Extremities exam: PRESENT: other - casts in place Neurological exam: PRESENT: alert, awake, oriented to person, oriented to place, oriented to time, oriented to situation, CN II-XII grossly intact. ABSENT: motor sensory deficit Results Laboratory Results: 09/28/18 06:46 09/27/18 19:05 09/27/18 09/27/18 09/28/18 19:05 19:05 01:05 Creatine Kinase 156 H 191 H CK-MB (CK-2) 2.11 Troponin I < 0.012 09/28/18 09/28/18 09/28/18 01:05 06:46 06:46 Creatine Kinase 216 H CK-MB (CK-2) Troponin I < 0.012 < 0.012 09/28/18 09/28/18 11:31 11:31 Creatine Kinase 298 H CK-MB (CK-2) Troponin I < 0.012 Impressions: Chest X-Ray 09/27/18 19:26 IMPRESSION: No evidence of acute cardiopulmonary disease. Hand/Wrist X-Ray 09/27/18 19:26 IMPRESSION: Fractures of the distal right radius and right ulnar styloid process. Fracture of the distal left radius. copyright 2010 [employer]- All Rights Reserved Foot X-Ray 09/27/18 19:27 IMPRESSION: Fracture of the distal phalanx of the great toe. copyright 2010 [employer]- All Rights Reserved Head CT 09/27/18 19:27 IMPRESSION: 1. No acute intracranial hemorrhage. 2. No acute fracture or subluxation of the cervical spine. Knee X-Ray 09/27/18 19:27 IMPRESSION: Prepatellar soft tissue swelling without underlying acute osseous anomaly. copyright 2010 [employer]- All Rights Reserved Cervical Spine CT 09/27/18 19:28 IMPRESSION: 1. No acute intracranial hemorrhage. 2. No acute fracture or subluxation of the cervical spine. Carotid Doppler Study 09/28/18 00:00 IMPRESSION: NO HEMODYNAMICALLY SIGNIFICANT STENOSIS. Qualifiers - * PATIENT BEING DISCHARGED WITH ANY OF THE FOLLOWING DIAGNOSIS: No
--- NOTE | 2018-09-29 18:00 | XCELERA REPORT ---
[address] [address] Transthoracic Echocardiogram Report Name: JEFFERY DOBBINS Age: 83 yrs Gender: Female : 1935 Patient Status: Inpatient Patient Location: [address] [place], [place] [address] Study Date: 09/28/2018 03:37 PM Height: 62 in Weight: 142 lb BSA: 1.7 m2 Procedure: A two-dimensional transthoracic echocardiogram with color flow Doppler was performed. Study Quality: Poor. Images were not obtained from all of the standard acoustic windows due to the limited scope of the study. Reason For Study: RECURRENT SYNCOPE History: RECURRENT SYNCOPE. Ordering Physician: CARA VICENTE Performed By: Wu Meléndez Interpretation Summary The left ventricle is grossly normal size. There is normal left ventricular wall thickness. No True apical 2 chamber views obtained.Hence cannot comment on the apical anterior , the basal anterior, the basal inferior and apical inferior catalan.The mid anterior , the mid inferior and the rest of the LV catalan contract normally. . LVEF is normal and is greater than 60% in the limited views. Doppler measurements suggest normal left ventricular diastolic function Not a good study to assess for cots,ASD,VSD , or PFO The right ventricle is not well visualized secondary to technical limitations Right atrium not well visualized secondary to technical limitations The left atrial size is normal. There is no evidence of mitral valve prolapse. There is no mitral valve stenosis. There is a trace amount of mitral regurgitation There is no aortic valve stenosis There is aortic sclerosis without aortic stenosis. There is no LVOT obstruction. There is a trace to mild amount of aortic regurgitation There is no tricuspid stenosis. There is a mild amount of tricuspid regurgitation There is moderate pulmonary hypertension by echo RVSP is 51 mm of Hg , with RA mean of 10. There is no pulmonic valvular stenosis. The aortic root is normal size. There is no pericardial effusion. MMode/2D Measurements & Calculations RVDd: 2.9 cm LVIDd: 3.9 cm FS: 35.4 % Ao root diam: 3.0 cm IVSd: 0.97 cm LVIDs: 2.5 cm EDV(Teich): 67.4 ml Ao root area: 6.9 cm2 LVPWd: 1.1 cm ESV(Teich): 23.3 ml LA dimension: 3.4 cm EF(Teich): 65.4 % LVOT diam: 1.6 cm LVOT area: 2.1 cm2 Doppler Measurements & Calculations MV E max marianne: MV P1/2t max marianne: Ao V2 max: AI max marianne: 112.3 cm/sec 128.3 cm/sec 109.3 cm/sec 229.4 cm/sec MV A max marianne: MV P1/2t: 56.6 msec Ao max PG: AI max P.1 cm/sec MVA(P1/2t): 3.9 cm2 4.8 mmHg 21.0 mmHg MV E/A: 1.7 MV dec slope: SARAHI(V,D): 1.4 cm2 AI dec slope: 185.9 cm/sec2 663.9 cm/sec2 AI P1/2t: MV dec time: 0.21 sec 361.5 msec LV V1 max PG: PA V2 max: TR max marianne: AV P1/2t-pr_phl: 2.1 mmHg 78.7 cm/sec 321.7 cm/sec 361.5 msec LV V1 max: PA max P.5 mmHg TR max P.1 cm/sec 41.4 mmHg MV P1/2t-pr_phl: 56.6 msec Left Ventricle The left ventricle is grossly normal size. There is normal left ventricular wall thickness. No True apical 2 chamber views obtained.Hence cannot comment on the apical anterior , the basal anterior, the basal inferior and apical inferior catalan.The mid anterior , the mid inferior and the rest of the LV catalan contract normally. . LVEF is normal and is greater than 60% in the limited views. Doppler measurements suggest normal left ventricular diastolic function. Not a good study to assess for cots,ASD,VSD , or PFO. Right Ventricle The right ventricle is not well visualized secondary to technical limitations. Atria Right atrium not well visualized secondary to technical limitations. The left atrial size is normal. Mitral Valve There is no evidence of mitral valve prolapse. There is no mitral valve stenosis. There is a trace amount of mitral regurgitation. Aortic Valve There is no aortic valvular vegetation. There is no aortic valve stenosis. There is aortic sclerosis without aortic stenosis. There is no LVOT obstruction. There is a trace to mild amount of aortic regurgitation. Tricuspid Valve There is no tricuspid stenosis. There is a mild amount of tricuspid regurgitation. There is moderate pulmonary hypertension by echo. RVSP is 51 mm of Hg , with RA mean of 10. Pulmonic Valve There is no pulmonic valvular stenosis. There is a trace amount of pulmonic regurgitation. Great Vessels The aortic root is normal size. The inferior vena cava was not well visualized. Effusions There is no pericardial effusion. : CARA VICENTE > Tanya Sanabria
== END 2018-09-29 12:06 | disposition home or self-care (01) ==
LOC: ER 18:54 → EH 21:56 → INTOOBSV 21:56 → OBSVTOIN 21:56 → INTOOBSV 22:43 → EH 22:43 → UNDOADMOB 22:43 → 4N 09-28 01:42 → EH 09-28 01:42
PROVIDERS: ADMIT Internal Medicine; ATTEND Internal Medicine
PROC: 0HQ1XZZ Repair Face Skin, External Approach (ICD-10-PCS; principal; 2018-09-27)
DX: R55 Syncope and collapse (principal); S52.502A Unspecified fracture of the lower end of left radius, initial encounter for closed fracture; S52.501A Unspecified fracture of the lower end of right radius, initial encounter for closed fracture; S52.611A Displaced fracture of right ulna styloid process, initial encounter for closed fracture; S01.81XA Laceration without foreign body of other part of head, initial encounter; S92.422B Displaced fracture of distal phalanx of left great toe, initial encounter for open fracture; I48.0 Paroxysmal atrial fibrillation; R20.0 Anesthesia of skin; S05.12XA Contusion of eyeball and orbital tissues, left eye, initial encounter; M19.90 Unspecified osteoarthritis, unspecified site; S80.212A Abrasion, left knee, initial encounter; W19.XXXA Unspecified fall, initial encounter; Y93.89 Activity, other specified; Y92.89 Other specified places as the place of occurrence of the external cause; R51 Headache; Z79.01 Long term (current) use of anticoagulants; Z87.81 Personal history of (healed) traumatic fracture; Z85.3 Personal history of malignant neoplasm of breast; Z82.49 Family history of ischemic heart disease and other diseases of the circulatory system
CPT/HCPCS: 12051; 93005; 96376; 99285; 96375; 96365; 36415 ×2; 82553; 82550 ×2; 83735; 85025 ×2; 80053; 84484 ×2; 93306; 93880; 71045; 73630; 73562; 73110; 70450; 72125; 93010; G0378 ×2; A9270 ×4; J1644; J0690; J3490; J1885; J2270 ×3; J2405